=== PATIENT | female | born 1985 | race African-American/Black ===

== ENCOUNTER 2025-05-12 16:13 | Emergency (ER) | payer BC, OTHER ==
[2025-05-12 16:21] VITALS: BP 111/70; PULSE 90; RESP 20; TEMP 98.4; BMI 24.2
== END 2025-05-12 16:57 | disposition home or self-care (01) ==
LOC: JERFT 16:13
DX: Z48.02 Encounter for removal of sutures (principal)
CPT/HCPCS: 99281-25